=== PATIENT | female | born 1945 | race Caucasian/White ===

== ENCOUNTER 2017-01-18 06:55 | Day surgery (SDC) | payer BC ==
[2017-01-18] VITALS (11 sets, daily range): BP systolic 75–137; BP diastolic 46–81; PULSE 80–95; RESP 17–18; Ht 157.5 cm; Wt 120.0 kg
[~2017-01-18] VITALS: Ht 157.5 cm; Wt 120.0 kg
[~2017-01-18 06:55] MED LIST: CYCLOPENTOLATE 1% 2 ML OPH OPER SCH; DICLOFENAC 0.1% 2.5 ML OPH OPER SCH; LACTATED RINGER'S 1,000 ML IV* SCH; MOXIFLOXACIN 0.5% 3 ML OPH OPER SCH; PHENYLephrine 2.5% 15 ML OPH OPER SCH; SOD CHLORIDE 0.9% 1,000 ML IV SCH; TROPICAMIDE 1% 3ML OPH OPER SCH
[2017-01-18] MEDS ORDERED: HYDR25TA6 PO (07:51)
[2017-01-18] MEDS ORDERED: LOSA100T7 PO (07:54)
[2017-01-18] MEDS ORDERED: MEMA5TAB PO (07:54)
[2017-01-18] MEDS ORDERED: METF500T4 PO (07:55)
[2017-01-18] MEDS ORDERED: GLIM2TAB PO (07:55)
[2017-01-18] MEDS ORDERED: SIMV10TA PO (07:56)
[2017-01-18] MEDS ORDERED: AMLO-147 PO (07:56)
[2017-01-18] MEDS ORDERED: LEVO75TA65 PO (07:57)
[2017-01-18] MEDS ORDERED: MULT-761 PO (07:58)
[2017-01-18] MEDS ORDERED: ASPI-664 PO (07:58)
[2017-01-18] MEDS ORDERED: CHOL200078 PO (07:59)
[2017-01-18] MEDS ORDERED: DORZ10DR6 BOTH EYES (08:09)
--- NOTE | 2017-01-18 08:30 | HPN ---
Date/Time of Note Date/Time of Note DATE: 01/18/17 TIME: 08:30 Interval H&P Admission Note Pt. seen H&P reviewed: No system changes AMARILYS CORREA Jan 18, 2017 08:30
[2017-01-18] MEDS ORDERED: LIDOCAINE 1% (MPF) 10 ML INJ ONE (08:57)
[2017-01-18] MEDS ORDERED: CARBACHOL 0.01% 1.5 ML OPH INJ ONE (08:57)
[2017-01-18] MEDS ORDERED: EPINEPHrine 1 MG INJ ONE (08:58)
[2017-01-18] MEDS ORDERED: LIDOCAINE 1% (MPF) 5 ML VIAL INJ ONE (09:00)
[2017-01-18] MEDS ORDERED: TETRACAINE 0.5% 4 ML OPH LEFT EYE ONE (09:00)
[2017-01-18] MEDS ORDERED: LIDOCAINE 2% (SDV) 5 ML INJ ONE (09:06)
[2017-01-18] MEDS ORDERED: MIDAZOLAM 1 MG/ML 2 ML INJ ONE (09:06)
[2017-01-18] MEDS ORDERED: FENTAnyl 50 MCG/ML VIAL ONE (09:06)
[2017-01-18] MEDS ORDERED: TOBRAMYCIN 0.3% 3.5 GM OPH OINT LEFT EYE ONE (09:55)
[2017-01-18] MEDS ORDERED: TOBRAMYCIN 0.3% 3.5 GM OPH OINT ONE (09:59)
[2017-01-18] MEDS ORDERED: ONDANSETRON 4 MG INJ IV PRN (10:30)
[2017-01-18] MEDS ORDERED: HYDROmorphONE (0.2 MG/ML) 10ML SYG IV PRN (10:30)
[2017-01-18] MEDS ORDERED: FENTAnyl 50 MCG/ML VIAL IV PRN (10:30)
[2017-01-18] MEDS ORDERED: OXYCODONE/ACETAMINOPHEN (5/325) TAB PO PRN (10:30)
--- NOTE | 2017-01-18 10:32 | OPR ---
Date/Time of Note Date/Time of Note DATE: 01/18/17 TIME: 10:28 Operative Report Free Text/Dictation Patient: Ruby Espinoza Date of Surgery: 01/18/2017 Surgeon: Amarilys Correa MD PreOp Diagnosis: Age-related nuclear cataract, left eye PostOp Diagnosis: Same Implant:[id number] 12.5D Procedures: 1. Phacoemulsification and extraction of lens, left eye 2. Intraocular lens implantation,left eye Anesthesia: Monitored anesthesia care with topical anesthesia Complications: None Estimated blood loss: <1mL Description of Procedure: The patient suffers from a visually significant cataract of the left eye. After discussing the option of cataract surgery, including the risks and benefits, the patient voiced understanding and elected to proceed today. The patient was identified in the pre-op holding area where the left eye was marked. The patient was then brought to the operating room where a time out was called, identifying the patient, the procedure, and the correct site. Tetracaine eye drops were applied. The left eye was then prepped and draped in usual sterile ophthalmic fashion. An eyelid speculum was placed into the operative eye. A paracentesis was made inferiorly with a side port blade. 1% preservative free lidocaine was injected into the anterior chamber. Next, Viscoat was injected to deepen the anterior chamber. A 2.4 mm keratome was used to create a temporal corneal wound. A continuous curvilinear capsulorrhexis was started with a bent cystitome and completed with Utrata forceps. Hydrodissection was performed with a cannula and BSS and the lens was rotated. Phacoemulsification of the lens nucleus was accomplished in a chop technique. Remaining residual cortex was removed with irrigation and aspiration. The posterior lens capsule was noted to be intact. Provisc was used to inflate the capsular bag. The lens was injected into the capsular bag. Viscoelastic was removed with irrigation and aspiration. The anterior chamber was filled with BSS to physiologic pressure and the wounds were hydrated and watertight. The eyelid speculum was removed and tobradex ointment was placed into the eye. A archer shield was placed over the operative eye. The patient tolerated the procedure well and was in stable condition on the way to the recovery room. Preoperative Diagnosis age related nuclear cataract, left eye Postoperative Diagnosis age related nuclear cataract, left eye Operation/Procedure Performed 1. phacoemulsification and extraction of lens, left eye 2. intraocular lens implantation, left eye Surgeon see signature line Crystal Growing Technician none Anesthesia Type: MAC Estimated Blood Loss: none Transfusion none Specimen n/a Grafts/Implants SN60WF 12.5D Tubes/Drains None Complications none Procedure Description see above AMARILYS CORREA Jan 18, 2017 10:32
== END 2017-01-18 11:15 | disposition home or self-care (01) ==
LOC: SDS 06:55
PROVIDERS: ATTEND Ophthalmology
DX: H25.9 Unspecified age-related cataract (principal)
CPT/HCPCS: 66984; 82962; J0171; J2250; J3010; V2632

== ENCOUNTER 2017-02-13 08:52 | Day surgery (SDC) | payer BC ==
[~2017-02-13] VITALS: Ht 157.5 cm; Wt 121.0 kg
[2017-02-13] VITALS (9 sets, daily range): BP systolic 101–140; BP diastolic 52–73; PULSE 77–91; RESP 16–20; Ht 157.5 cm; Wt 121.0 kg
[~2017-02-13 08:52] MED LIST changes: +AMLO-147 PO; +ASPI-664 PO; +CHOL200078 PO; +DORZ10DR6 BOTH EYES; +GLIM2TAB PO; +HYDR25TA6 PO; +LABETALOL HCL 20MG INJ IV PRN; +LEVO75TA65 PO; +LOSA100T7 PO; +MEMA5TAB PO; +METF500T4 PO; +METOCLOPRAMIDE 10 MG INJ IV PRN; +MULT-761 PO; +ONDANSETRON 4 MG INJ IV PRN; +OXYCODONE/ACETAMINOPHEN (5/325) TAB PO PRN; +SIMV10TA PO; -SOD CHLORIDE 0.9% 1,000 ML IV SCH; +TROPICAMIDE 1% 15 ML OPH OPER SCH; +TROPICAMIDE 1% 2 ML OPH OPER SCH; -TROPICAMIDE 1% 3ML OPH OPER SCH; +hydrALAzine 20 MG INJ IV PRN
[2017-02-13] MEDS ORDERED: TROPICAMIDE 1% 3 ML OPH ONE (09:19)
[2017-02-13] MEDS ORDERED: FENTAnyl 50 MCG/ML VIAL ONE (10:09)
[2017-02-13] MEDS ORDERED: MIDAZOLAM 1 MG/ML 2 ML INJ ONE (10:09)
--- NOTE | 2017-02-13 10:33 | HPN ---
Date/Time of Note Date/Time of Note DATE: 02/13/17 TIME: 10:33 Interval H&P Admission Note Pt. seen H&P reviewed: No system changes AMARILYS CORREA Feb 13, 2017 10:33
[2017-02-13] MEDS ORDERED: LIDOCAINE 1% (MPF) 10 ML INJ ONE (11:03)
[2017-02-13] MEDS ORDERED: TETRACAINE 0.5% 4 ML OPH ONE (11:04)
[2017-02-13] MEDS ORDERED: TETRACAINE 0.5% 4 ML OPH RIGHT EYE ONE (11:48)
[2017-02-13] MEDS ORDERED: TOBRAMYCIN 0.3% 3.5 GM OPH OINT RIGHT EYE ONE (11:49)
[2017-02-13] MEDS ORDERED: TOBRAMYCIN/DEXAMETH 3.5 GM OPH OINT ONE (11:53)
--- NOTE | 2017-02-13 11:57 | OPR ---
Date/Time of Note Date/Time of Note DATE: 02/13/17 TIME: 11:53 Operative Report Free Text/Dictation Patient: Ruby Espinoza Date of Surgery: 02/13/2017 Surgeon: Amarilys Correa MD PreOp Diagnosis: Age-related nuclear cataract, right eye PostOp Diagnosis: Same Implant: SN60WF 11.5D Procedures: 1. Phacoemulsification and extraction of lens, right eye 2. Intraocular lens implantation, right eye Anesthesia: Monitored anesthesia care with topical anesthesia Complications: None Estimated blood loss: <1mL Description of Procedure: The patient suffers from a visually significant cataract of the right eye. After discussing the option of cataract surgery, including the risks and benefits, the patient voiced understanding and elected to proceed today. The patient was identified in the pre-op holding area where the right eye was marked. The patient was then brought to the operating room where a time out was called, identifying the patient, the procedure, and the correct site. Tetracaine eye drops were applied. The right eye was then prepped and draped in usual sterile ophthalmic fashion. An eyelid speculum was placed into the operative eye. A paracentesis was made superiorly with a side port blade. 1% preservative free lidocaine was injected into the anterior chamber. Next, Viscoat was injected to deepen the anterior chamber. A 2.4 mm keratome was used to create a temporal corneal wound. A continuous curvilinear capsulorrhexis was started with a bent cystitome and completed with Utrata forceps. Hydrodissection was performed with a cannula and BSS and the lens was rotated. Phacoemulsification of the lens nucleus was accomplished in a [id number] technique. Remaining residual cortex was removed with irrigation and aspiration. The posterior lens capsule was noted to be intact. Provisc was used to inflate the capsular bag. The lens was injected into the capsular bag. Viscoelastic was removed with irrigation and aspiration. The anterior chamber was filled with BSS to physiologic pressure and the wounds were hydrated and watertight. The eyelid speculum was removed and a drop of vigamox and tobradex ointment were placed into the eye. A archer shield was placed over the operative eye. The patient tolerated the procedure well and was in stable condition on the way to the recovery room.t Procedure Date: Feb 13, 2017 Preoperative Diagnosis age related nuclear cataract, right eye Postoperative Diagnosis same Operation/Procedure Performed see full op note above Surgeon see signature line District Medical Examiner none Anesthesia Type: MAC Estimated Blood Loss: minimal Transfusion none Specimen none Grafts/Implants SN60WF 11.5D Tubes/Drains NONE Complications none Procedure Description See full op note above AMARILYS CORREA Feb 13, 2017 11:57
== END 2017-02-13 13:11 | disposition home or self-care (01) ==
LOC: SDS 08:52
PROVIDERS: ATTEND Ophthalmology
DX: H25.11 Age-related nuclear cataract, right eye (principal); I10 Essential (primary) hypertension; E78.5 Hyperlipidemia, unspecified; E11.9 Type 2 diabetes mellitus without complications
CPT/HCPCS: 66984; 82962; J2250; J3010; V2632